=== PATIENT | female | born 1960 | race Asian ===

== ENCOUNTER 2017-12-22 14:09 | Inpatient (IN) | payer OTHER ==
[2017-12-22] MEDS: ONDANSETRON 4 MG INJ IV ×2 (14:30→20:00)
[2017-12-22] MEDS: HYDROmorphONE 1 MG/5 ML IV SYRINGE IV (14:31)
[2017-12-22] MEDS: SOD CHLORIDE 0.9% 1,000 ML IV ×4 (14:31→23:43)
[2017-12-22] MEDS: KETOROLAC 30 MG INJ IV (14:31)
[2017-12-22 14:52] LABS: ADD MAN DIFF? NO
[2017-12-22 14:53] LABS: WHITE BLOOD COUNT 8.2 10^3/ul (4.8-10.8)
[2017-12-22 14:53] LABS: BASOPHILS % 0.2 % (0.0-2.0); EOSINOPHILS # 0.2 10^3/ul (0.0-0.5); EOSINOPHILS % 1.8 % (0.0-7.0); HEMATOCRIT 37.7 % (37.0-47.0); HEMOGLOBIN 12.4 g/dl (12.0-16.0); LYMPHOCYTES # 2.5 10^3/ul (0.8-2.9); LYMPHOCYTES % 30.4 % (15.0-51.0); MEAN CORPUSCULAR HEMOGLOBIN 25.9 pg (29.0-33.0); MEAN CORPUSCULAR HGB CONC 32.9 g/dl (32.0-37.0); MEAN CORPUSCULAR VOLUME 78.7 fl (82.0-101.0); MEAN PLATELET VOLUME 10.3 fl (7.4-10.4); MONOCYTE # 0.4 10^3/ul (0.3-0.9); MONOCYTES % 5.2 % (0.0-11.0); NEUTROPHIL # 5.1 10^3/ul (1.6-7.5); NEUTROPHILS % 62.2 % (39.0-77.0); PLATELET COUNT 354 10^3/UL (140-415); RED BLOOD COUNT 4.79 10^6/ul (4.20-5.40); RED CELL DISTRIBUTION WIDTH 14.5 % (11.5-14.5)
[2017-12-22 15:11] LABS: ADD UMIC YES; UR ASCORBIC ACID NEGATIVE (NEGATIVE); UR BACTERIA FEW /HPF (NONE SEEN); UR BILIRUBIN (Dip) NEGATIVE (NEGATIVE); UR BLOOD (Dip) 3+ mg/dL (NEGATIVE); UR CLARITY CLEAR (CLEAR); UR COLOR STRAW (YELLOW); UR GLUCOSE (Dip) NEGATIVE (NEGATIVE); UR KETONES (Dip) NEGATIVE (NEGATIVE); UR LEUKOCYTE ESTERASE (Dip) 3+ Leu/ul (NEGATIVE); UR NITRITE (Dip) NEGATIVE (NEGATIVE); UR NONSQUAMOUS EPITHELIAL CELL 1 /HPF (NONE SEEN); UR RBC 2 /HPF (0-5); UR SPECIFIC GRAVITY (Dip) 1.002 (1.003-1.030); UR TOTAL PROTEIN (Dip) NEGATIVE (NEGATIVE); UR UROBILINOGEN (Dip) NEGATIVE (NEGATIVE); UR WBC 72 /HPF (0-5)
[2017-12-22 15:15] LABS: ALANINE AMINOTRANSFERASE 37 IU/L (13-69); ALBUMIN 4.5 g/dl (3.3-4.9); ALBUMIN/GLOBULIN RATIO 1.07; ALKALINE PHOSPHATASE 107 IU/L (42-121); ANION GAP 22 (8-16); ASPARTATE AMINO TRANSFERASE 32 IU/L (15-46); BILIRUBIN,INDIRECT 0.2 mg/dl (0-1.1); BILIRUBIN,TOTAL 0.2 mg/dl (0.2-1.3); BLOOD UREA NITROGEN 13 mg/dl (7-20); CARBON DIOXIDE 18 mmol/L (21-31); CHLORIDE 108 mmol/L (97-110); CREATININE 0.61 mg/dl (0.44-1.00); GLUCOSE 160 mg/dl (70-220); LIPASE 219 U/L (23-300); POTASSIUM 3.8 mmol/L (3.5-5.1); SODIUM 144 mmol/L (135-144); TOTAL PROTEIN 8.7 g/dl (6.1-8.1)
[2017-12-22] MEDS ORDERED: ACETAMINOPHEN 325 MG TAB PO ×2 (15:30→16:30)
[2017-12-22] MEDS ORDERED: ONDANSETRON 4 MG INJ IV (15:30)
[2017-12-22] MEDS ORDERED: NACL 0.9% 3 ML SYG IV (16:30)
[2017-12-22] MEDS ORDERED: VANCOMYCIN IV PER PHARMACY XX (16:30)
[2017-12-22 17:09] LABS: LACTIC ACID 3.9 mmol/L (0.5-2.0)
[2017-12-22 17:25] LABS: FREE T4 (FREE THYROXINE) 1.63 ng/dl (0.64-1.79)
[2017-12-22 17:27] LABS: HEMOGLOBIN A1C 6.4 % (0-5.9)
[2017-12-22] MEDS ORDERED: GLUCOSE GEL 15 GRAM TUBE PO ×2 (17:30)
[2017-12-22] MEDS ORDERED: GLUCAGON 1 MG INJ IM (17:30)
[2017-12-22] MEDS ORDERED: DEXTROSE 50% 50 ML SYRINGE IV ×2 (17:30)
[2017-12-22] MEDS ORDERED: GLUCOSE GEL 15 GRAM TUBE BUCCAL (17:30)
[2017-12-22] MEDS ORDERED: AZTREONAM 1 GM/NS (PMX) 50 ML IVPB (18:00)
[2017-12-22] MEDS: AZTREONAM 1 GM/NS (PMX) 50 ML IVPB (18:00)
[2017-12-22] MEDS: INSULIN ASPART [NOVOLOG] 3 ML PEN SC ×3 (18:00→21:00)
[2017-12-22] MEDS ORDERED: VANCOMYCIN 1 GM (PMX) 250 ML IVPB (18:00)
[2017-12-22] MEDS: HYDROmorphONE 0.5 MG/0.5 ML SYG IV (20:00)
[2017-12-22] MEDS: POLYETHYLENE GLYCOL 17 GM PACKET PO (21:00)
[2017-12-22] MEDS: DOCUSATE SODIUM 100 MG CAP PO (21:43)
[2017-12-22] MEDS: VANCOMYCIN 1 GM in 250 ML IVPB (21:43)
[2017-12-22 21:57] LABS: LACTIC ACID 1.2 mmol/L (0.5-2.0)
[2017-12-22] MEDS ORDERED: DIPHENHYDRAMINE 25 MG CAP PO (22:30)
[2017-12-22] MEDS: LORATADINE 10 MG TAB PO (23:19)
[2017-12-22] MEDS: INSULIN GLARGINE [LANtus] 3 ML PEN SC (23:25)
[2017-12-23] MEDS: hydrOXYzine HCL 25 MG TAB PO (00:15)
[2017-12-23] MEDS: HYDROCODONE/APAP (5/325) TAB PO ×3 (05:46→20:20)
[2017-12-23 06:57] LABS: ADD MAN DIFF? NO
[2017-12-23 07:06] LABS: BASOPHILS % 0.1 % (0.0-2.0); EOSINOPHILS # 0.3 10^3/ul (0.0-0.5); EOSINOPHILS % 4.5 % (0.0-7.0); HEMATOCRIT 30.9 % (37.0-47.0); HEMOGLOBIN 9.9 g/dl (12.0-16.0); LYMPHOCYTES # 1.3 10^3/ul (0.8-2.9); LYMPHOCYTES % 19.3 % (15.0-51.0); MEAN CORPUSCULAR HEMOGLOBIN 25.7 pg (29.0-33.0); MEAN CORPUSCULAR VOLUME 80.3 fl (82.0-101.0); MEAN PLATELET VOLUME 10.3 fl (7.4-10.4); MONOCYTE # 0.2 10^3/ul (0.3-0.9); MONOCYTES % 3.1 % (0.0-11.0); NEUTROPHILS % 72.7 % (39.0-77.0); PLATELET COUNT 283 10^3/UL (140-415); RED BLOOD COUNT 3.85 10^6/ul (4.20-5.40); RED CELL DISTRIBUTION WIDTH 14.7 % (11.5-14.5)
[2017-12-23 07:06] LABS: WHITE BLOOD COUNT 6.9 10^3/ul (4.8-10.8)
[2017-12-23 07:33] LABS: LACTIC ACID 0.8 mmol/L (0.5-2.0)
[2017-12-23] MEDS: INSULIN ASPART [NOVOLOG] 3 ML PEN SC ×7 (07:35→20:47)
[2017-12-23 07:39] LABS: ALANINE AMINOTRANSFERASE 34 IU/L (13-69); ALBUMIN 2.5 g/dl (3.3-4.9); ALBUMIN/GLOBULIN RATIO 0.83; ALKALINE PHOSPHATASE 65 IU/L (42-121); ANION GAP 10 (8-16); ASPARTATE AMINO TRANSFERASE 22 IU/L (15-46); BILIRUBIN,INDIRECT 0.4 mg/dl (0-1.1); BILIRUBIN,TOTAL 0.4 mg/dl (0.2-1.3); BLOOD UREA NITROGEN 10 mg/dl (7-20); CALCIUM 8.4 mg/dl (8.4-10.2); CARBON DIOXIDE 22 mmol/L (21-31); CHLORIDE 114 mmol/L (97-110); CREATININE 0.61 mg/dl (0.44-1.00); GLUCOSE 83 mg/dl (70-220); POTASSIUM 4.1 mmol/L (3.5-5.1); SODIUM 142 mmol/L (135-144); TOTAL PROTEIN 5.5 g/dl (6.1-8.1)
[2017-12-23 07:40] LABS: CHOL/HDL RATIO 3.1 RATIO; CHOLESTEROL 112 mg/dl (100-200); HDL CHOLESTEROL 36 mg/dl (37-92); LDL CHOLESTEROL,CALCULATED 62 mg/dl; MAGNESIUM 1.7 mg/dl (1.7-2.5); TRIGLYCERIDES 68 mg/dl (0-149)
[2017-12-23] MEDS: SOD CHLORIDE 0.9% 1,000 ML IV ×2 (08:30→16:54)
[2017-12-23] MEDS: DOCUSATE SODIUM 100 MG CAP PO ×2 (08:50→20:48)
[2017-12-23] MEDS: LOSARTAN 50 MG TAB PO (08:50)
[2017-12-23] MEDS: POLYETHYLENE GLYCOL 17 GM PACKET PO ×3 (08:50→21:00)
[2017-12-23] MEDS: AZTREONAM 1 GM/NS (PMX) 50 ML IVPB ×2 (09:04→20:50)
[2017-12-23 09:29] LABS: PARTIAL THROMBOPLASTIN TIME 34.3 Sec (25.0-35.0)
[2017-12-23 09:30] LABS: INR 0.99; PROTIME 13.2 Sec (11.9-14.9)
[2017-12-23] MEDS: VANCOMYCIN 500MG/NS (PMX) 100 ML IVPB (09:56)
[2017-12-23] MEDS: LORATADINE 10 MG TAB PO (12:07)
[2017-12-23] MEDS: LEVOFLOXACIN 500MG/D5W (PMX) 100 ML IVPB (12:31)
[2017-12-23] MEDS ORDERED: HYDROmorphONE 2 MG TAB PO (18:00)
[2017-12-23] MEDS: INSULIN GLARGINE [LANtus] 3 ML PEN SC (20:50)
[2017-12-24] MEDS: SOD CHLORIDE 0.9% 1,000 ML IV ×2 (01:24→08:24)
[2017-12-24] MEDS: HYDROCODONE/APAP (5/325) TAB PO (04:59)
[2017-12-24] MEDS ORDERED: ROCURONIUM 50 MG INJ (06:26)
[2017-12-24] MEDS ORDERED: GLYCOPYRROLATE 0.4 MG INJ (06:26)
[2017-12-24] MEDS ORDERED: FENTAnyl 50 MCG/ML VIAL (06:26)
[2017-12-24] MEDS ORDERED: PROPOFOL 20 ML (06:26)
[2017-12-24] MEDS ORDERED: NEOSTIGMINE 3 MG/3 ML SYRINGE (06:26)
[2017-12-24] MEDS ORDERED: DEXAMETHASONE 4 MG/ML 1 ML INJ (06:27)
[2017-12-24] MEDS ORDERED: MIDAZOLAM 1 MG/ML 2 ML INJ (06:27)
[2017-12-24] MEDS ORDERED: ONDANSETRON 4 MG INJ (06:27)
[2017-12-24] MEDS ORDERED: morphine (1 MG/ML) 10ML SYRINGE IV ×3 (06:30)
[2017-12-24] MEDS ORDERED: FENTAnyl 50 MCG/ML VIAL IV (06:30)
[2017-12-24] MEDS ORDERED: ATROPINE 1 MG/10 ML SYRINGE IV (06:30)
[2017-12-24] MEDS ORDERED: MEPERIDINE 25 MG INJ IV (06:30)
[2017-12-24] MEDS ORDERED: EPHEDrine SULFATE 50 MG/5 ML SYG IV (06:30)
[2017-12-24] MEDS ORDERED: LABETALOL HCL 20MG INJ IV (06:30)
[2017-12-24] MEDS ORDERED: ONDANSETRON 4 MG INJ IV (06:30)
[2017-12-24] MEDS ORDERED: MIDAZOLAM 1 MG/ML 2 ML INJ IV (06:30)
[2017-12-24] MEDS ORDERED: OXYCODONE/ACETAMINOPHEN (5/325) TAB PO (06:30)
[2017-12-24] MEDS ORDERED: HYDROmorphONE (0.2 MG/ML) 10ML SYG IV ×3 (06:30)
[2017-12-24] MEDS ORDERED: DIPHENHYDRAMINE 50 MG INJ IV (06:30)
[2017-12-24] MEDS ORDERED: IOHEXOL 300MG/ML 30 ML BTL (06:55)
[2017-12-24] MEDS ORDERED: LIDOCAINE 100 MG SYRINGE (07:00)
[2017-12-24] MEDS: INSULIN ASPART [NOVOLOG] 3 ML PEN SC ×4 (07:35→12:17)
[2017-12-24] MEDS ORDERED: VANCOMYCIN 1 GM (PMX) 250 ML (07:58)
[2017-12-24] MEDS: VANCOMYCIN 500MG/NS (PMX) 100 ML IVPB (08:22)
[2017-12-24] MEDS: IOHEXOL 300MG/ML 30 ML BTL INJ (08:27)
[2017-12-24] MEDS: DOCUSATE SODIUM 100 MG CAP PO (09:00)
[2017-12-24] MEDS: POLYETHYLENE GLYCOL 17 GM PACKET PO (09:00)
[2017-12-24] MEDS: AZTREONAM 1 GM/NS (PMX) 50 ML IVPB (09:00)
[2017-12-24] MEDS: LOSARTAN 50 MG TAB PO (09:00)
[2017-12-24] MEDS: LORATADINE 10 MG TAB PO (09:00)
[2017-12-24] MEDS: OXYCODONE/ACETAMINOPHEN (5/325) TAB PO ×2 (09:44→11:43)
[2017-12-24] MEDS: FENTAnyl 50 MCG/ML VIAL IV ×3 (09:56→11:44)
[2017-12-24] MEDS: hydrALAzine 20 MG INJ IV (10:17)
[2017-12-24 11:10] LABS: ADD MAN DIFF? NO
[2017-12-24 11:12] LABS: BASOPHILS % 0.1 % (0.0-2.0); EOSINOPHILS # 0.1 10^3/ul (0.0-0.5); EOSINOPHILS % 1.7 % (0.0-7.0); HEMATOCRIT 36.8 % (37.0-47.0); HEMOGLOBIN 11.6 g/dl (12.0-16.0); LYMPHOCYTES # 1.3 10^3/ul (0.8-2.9); LYMPHOCYTES % 17.6 % (15.0-51.0); MEAN CORPUSCULAR HGB CONC 31.5 g/dl (32.0-37.0); MEAN CORPUSCULAR VOLUME 82.3 fl (82.0-101.0); MEAN PLATELET VOLUME 10.2 fl (7.4-10.4); MONOCYTE # 0.1 10^3/ul (0.3-0.9); NEUTROPHIL # 5.7 10^3/ul (1.6-7.5); NEUTROPHILS % 79.3 % (39.0-77.0); PLATELET COUNT 327 10^3/UL (140-415); RED BLOOD COUNT 4.47 10^6/ul (4.20-5.40); RED CELL DISTRIBUTION WIDTH 14.9 % (11.5-14.5)
[2017-12-24 11:12] LABS: WHITE BLOOD COUNT 7.2 10^3/ul (4.8-10.8)
[2017-12-24 11:32] LABS: MAGNESIUM 1.8 mg/dl (1.7-2.5)
[2017-12-24 11:32] LABS: PHOSPHORUS 2.8 mg/dl (2.5-4.9)
[2017-12-24 11:33] LABS: ANION GAP 16 (8-16); BLOOD UREA NITROGEN 7 mg/dl (7-20); CALCIUM 9.1 mg/dl (8.4-10.2); CARBON DIOXIDE 23 mmol/L (21-31); CHLORIDE 114 mmol/L (97-110); CREATININE 0.62 mg/dl (0.44-1.00); GLUCOSE 149 mg/dl (70-220); POTASSIUM 3.6 mmol/L (3.5-5.1); SODIUM 149 mmol/L (135-144)
[2017-12-30] MEDS ORDERED: NEOSTIGMINE 3 MG/3 ML SYRINGE (06:29)
[2017-12-30] MEDS ORDERED: ROCURONIUM 50 MG INJ (06:29)
[2017-12-30] MEDS ORDERED: LIDOCAINE 2% (SDV) 5 ML INJ (06:29)
[2017-12-30] MEDS ORDERED: PROPOFOL 20 ML (06:29)
[2017-12-30] MEDS ORDERED: GLYCOPYRROLATE 0.4 MG INJ (06:29)
[2017-12-30] MEDS ORDERED: MIDAZOLAM 1 MG/ML 2 ML INJ (06:30)
[2017-12-30] MEDS ORDERED: FENTAnyl 50 MCG/ML VIAL (06:30)
[2017-12-30] MEDS ORDERED: ONDANSETRON 4 MG INJ (06:36)
[2017-12-30] MEDS ORDERED: DEXAMETHASONE 4 MG/ML 1 ML INJ (06:36)
[2017-12-30] MEDS ORDERED: SUCCINYLCHOLINE CHLORIDE 100 MG/5 ML SYG IV (07:26)
[2017-12-30] MEDS ORDERED: KETOROLAC 30 MG INJ (08:23)
== END 2017-12-24 13:44 | disposition home or self-care (01) | DRG 670 ==
LOC: E/R 14:09 → PP2 15:07
PROC: 0TP98DZ Removal of Intraluminal Device from Ureter, Via Natural or Artificial Opening Endoscopic (ICD-10-PCS; principal; 2017-12-24 07:30)
PROC: 0TC78ZZ Extirpation of Matter from Left Ureter, Via Natural or Artificial Opening Endoscopic (ICD-10-PCS; 2017-12-24 07:30)
PROC: 0T778DZ Dilation of Left Ureter with Intraluminal Device, Via Natural or Artificial Opening Endoscopic (ICD-10-PCS; 2017-12-24 07:30)
DX: N20.1 Calculus of ureter (principal); I10 Essential (primary) hypertension; E11.9 Type 2 diabetes mellitus without complications; Z96.0 Presence of urogenital implants; Z87.442 Personal history of urinary calculi; Z79.84 Long term (current) use of oral hypoglycemic drugs; Z79.82 Long term (current) use of aspirin
CPT/HCPCS: 36415; 71045; 74176; 74420; 80048; 80053; 80061; 81001; 82962; 83036; 83605; 83690; 83735; 84100; 84439; 84443; 85025; 85335; 85610; 87040; 87086; 88300; 93005; 96374; 96375; 99291-25